=== PATIENT | female | born 1980 | race Two or more races ===

== ENCOUNTER → 2020-05-28 14:39 | Outpatient (CLI) | payer OTHER | END | disposition home or self-care (01) | LOC: LAB 14:39 | PROVIDERS: ATTEND General Practice | DX: Z01.84 Encounter for antibody response examination (principal) ==

== ENCOUNTER 2020-06-04 13:59 | Outpatient (CLI) | payer OTHER | END 2020-06-04 18:00 | disposition home or self-care (01) | LOC: PPH VACUNA 13:59 | DX: Z23 Encounter for immunization (principal) ==

== ENCOUNTER 2021-01-18 16:38 | Emergency (ER) | payer OTHER ==
[~2021-01-18] VITALS: Ht 172.7 cm; Wt 72.6 kg
== END 2021-01-18 21:16 | disposition home or self-care (01) ==
LOC: ER 16:38 → EDBD 16:44 → ER 16:44
DX: R53.81 Other malaise (principal)

== ENCOUNTER 2021-01-27 23:15 | Outpatient (CLI) | payer OTHER | END 2021-01-27 23:50 | disposition home or self-care (01) | LOC: LAB 23:15 | DX: Z03.818 Encounter for observation for suspected exposure to other biological agents ruled out (principal) ==

== ENCOUNTER 2021-02-11 23:17 | Outpatient (CLI) | payer OTHER | END 2021-02-11 23:50 | disposition home or self-care (01) | LOC: LAB 23:17 | DX: Z03.818 Encounter for observation for suspected exposure to other biological agents ruled out (principal) ==

== ENCOUNTER 2021-04-21 08:00 | Outpatient (CLI) | payer OTHER | END 2021-04-21 08:30 | disposition home or self-care (01) | LOC: PPH VACUNA 08:00 | PROVIDERS: ATTEND Emergency Medicine Pediatric Emergency Medicine | DX: Z23 Encounter for immunization (principal) ==

== ENCOUNTER 2021-05-02 13:12 | Outpatient (CLI) | payer OTHER | END 2021-05-02 13:21 | disposition home or self-care (01) | LOC: SONOGRAMA 13:12 | DX: Q51.818 Other congenital malformations of uterus (principal); R10.2 Pelvic and perineal pain ==

== ENCOUNTER 2021-05-14 15:18 | Outpatient (CLI) | payer OTHER | END 2021-05-14 15:41 | disposition home or self-care (01) | LOC: LAB 15:18 | PROVIDERS: ATTEND General Practice | DX: Z20.828 Contact with and (suspected) exposure to other viral communicable diseases (principal) ==

== ENCOUNTER → 2021-06-04 | Emergency (ER) | payer OTHER ==
[~2021-06-04] VITALS: Ht 165.1 cm; Wt 68.0 kg
== END | disposition home or self-care (01) ==
LOC: ER 17:11
DX: U07.1 COVID-19 (principal)